=== PATIENT | male | born 1930 | race Caucasian/White ===

== ENCOUNTER 2017-06-29 09:40 | Inpatient (IN) | payer OTHER ==
[~2017-06-29] VITALS: Ht 167.6 cm; Wt 81.6 kg
--- NOTE | ~2017-06-29 | EKG ---
[place] [address] [facility] [place] [address] ELECTROCARDIOGRAM REPORT Name: TONYA DALY Room #: 421-P ADM IN M.R.#: [id number] Admission: 06/29/17 Attend Phys: Jose A Tracey Discharge: Date of : 30 Report #: [id number] THIS REPORT FOR: //name// [facility] ED Test Date: 2017-06-29 Test Time: 10:01:35 Pat Name: TOYNA DALY Department: Room: 421 Gender: M [employer]: GABRIELA : 1930 Requested By: Alphonse Cortés Order Number: [id number] MD: Mike Limon Measurements Intervals [place] Rate: 69 P: 32 ME: 190 QRS: -26 QRSD: 115 T: 6 QT: 416 QTc: 446 Interpretive Statements Sinus rhythm Nonspecific intraventricular conduction delay Borderline T abnormalities No previous ECG available for comparison Electronically Signed On 06-29-2017 16:00:30 SMOKE EATER by Mike Limon [email or web address] <ELECTRONICALLY SIGNED> By: Mike Limon MD, [facility] 06/29/17 1600 1001 1001 Mike Limon MD, FACC /EPI
--- NOTE | ~2017-06-29 | 2DMMODE ---
[facility] [employer] [place] [place] [address] 2 D/M-MODE ECHOCARDIOGRAM Name: TONYA DALY Conor Room #: 170-6 ADM IN ..#: [id number] Admission: 06/29/17 Attend Phys: Jose A Méndez Discharge: Date of : 30 Date of Service: 06/29/17 1353 Report #: [id number] THIS REPORT FOR: //name// APPROVED REPORT Study performed: 06/29/2017 12:35:33 EXAM: Comprehensive 2D, Doppler, and color-flow Echocardiogram Patient Location: ER Room #: 6 Status: routine BSA: 1.96 HR: 61 bpm BP: 149/66 mmHg Rhythm: NSR Indications Syncope. Hx: TIAs, ASD or PFO closure device. Echo Enhancing Agent Indication: Rule out Shunt Agent(s) / Amount(s) Used: Agitated Saline 6 cc 2D Dimensions RVDd: 37.85 mm LVEF(%): 48.01 (>50%) IVSd: 12.64 (7-11mm) LVOT Diam: 24.60 (18-24mm) LVDd: 60.90 mm PWd: 10.14 (7-11mm) Ascending Ao: 43.52 (22-36mm) LVDs: 45.90 (25-40mm) Aortic Root: 39.48 mm Will's LVEF: 48.01 % Volumes Left Atrial Volume (Systole) Single Plane 4CH: 94.32 mL Single Plane 2CH: 92.72 mL LA ESV Index: 51.00 mL/m2 Aortic Valve AoV Peak Darin.: 2.06 m/s AO Peak Gr.: 16.93 mmHg LVOT Max P.21 mmHg AO Mean Gr.: 9.51 mmHg AO V2 Mean: 1.47 m/s LVOT Max V: 0.90 m/s AO V2 VTI: 52.85 cm YANI Vmax: 2.07 cm2 AI Vmax: 3.98 m/s [facility] [employer] [place] [place] [address] 2 D/M-MODE ECHOCARDIOGRAM Name: MARYLUAZULTONYA Perdomo Room #: 170-6 [facility] IN .R.#: [id number] Admission: 06/29/17 Attend Phys: Jose A Méndez Discharge: Date of : 30 Date of Service: 06/29/17 1353 Report #: [id number] AI Morris: 1.90 m/s2 AI PHT: 607.89 ms Mitral Valve E/A Ratio: 0.8 MV Decel. Time: 291.02 ms MV E Max Darin.: 0.81 m/s MV A Darin.: 0.96 m/s MV PHT: 84.40 ms IVRT: 101.50 ms Pulmonary Valve PV Peak Darin.: 1.51 m/s PV Peak Gr.: 9.12 mmHg Pulmonary Vein P Vein S: 0.64 m/s P Vein A: 0.32 m/s P Vein D: 0.39 m/s P Vein A Dur.: 166.1 msec P Vein S/D Ratio: 1.64 Tricuspid Valve TR Peak Darin.: 3.21 m/s RAP Estimate: 5.00 mmHg TR Peak Gr.: 41.26 mmHg PA Pressure: 46.00 mmHg Left Ventricle Left ventricle is mildly dilated. There is normal LV segmental wall motion. Mild basal septal hypertrophy is present. Left ventricular systolic function is normal. LVEF is 50-55%. Mild diastolic dysfunction is present (impaired relaxation pattern). Right Ventricle The right ventricle is normal size. The right ventricular systolic function is normal. Atria Left atrium is severely dilated. No shunting noted with contrast bubble injection. The right atrium size is normal. Aortic Valve Aortic valve leaflets are mildly thickened. Mild aortic regurgitation. There is no aortic valvular stenosis. Mitral Valve Mitral valve leaflets are mildly thickened. Mild mitral annular calcification. Mild [place] [address] 2 D/M-MODE ECHOCARDIOGRAM Name: ADDYTONYA Perdomo Room #: 170-6 ADM IN M.R.#: [id number] Admission: 06/29/17 Attend Phys: Jose A Méndez Discharge: Date of : 30 Date of Service: 06/29/17 1353 Report #: [id number] Tricuspid Valve The tricuspid valve is normal in structure. Mild tricuspid regurgitation. Estimated PAP is 45-50mmHg. Pulmonic Valve The pulmonary valve is normal in structure. Mild pulmonic regurgitation. Great Vessels Aortic root is mildly dilated at 3.9cm. 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 Pericardium There is no pericardial effusion. <Conclusion> Left ventricular systolic function is normal. There is normal LV segmental wall motion. LVEF is 50-55%. Mild diastolic dysfunction Left atrium is severely dilated. ASD closure device suggested. No shunting noted with contrast bubble injection. Aortic valve leaflets are mildly thickened, no stenosis. Mild aortic regurgitation. Mitral valve leaflets are mildly thickened. Mild mitral annular calcification. Mild mitral regurgitation. Mild tricuspid regurgitation. Estimated pulmonary artery pressure of 45-50mmHg. 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 <ELECTRONICALLY SIGNED> By: Mike Limon MD, FACC 06/29/17 1353 1353 1353 Mike Limon MD, FACC /INF
--- NOTE | ~2017-06-29 | HC ---
[facility] [place] [address] CONSULTATION Name: ADDYTONYA Perdomo Room #: 421-P [facility] IN M.R.#: [id number] Admission: 06/29/17 Attend Phys: Jose A Tracey Discharge: Date of : 30 Report #: [id number] THIS REPORT FOR: //name// CC: Aba Tracey REASON FOR CONSULTATION: Chronic kidney disease. REASON FOR PRESENTATION: Dizziness. HISTORY OF PRESENT ILLNESS: This is an 86-year-old with past medical history of chronic kidney disease. He sees Dr. Bonilla in our clinic. He is known to have renal cell carcinoma status post right-sided nephrectomy. He is also known to have a left-sided renal mass. This was operated upon. It looks like that there was some sort of thermal treatment as he stated. He has been seeing Dr. Bonilla in my clinic and decision was made to continue with the medical treatment every 6-month visit with Dr. Bonilla. He presented yesterday reporting some dizziness and lightheadedness. No associated vomiting. He was admitted for further evaluation and management. CT scan of the brain revealed no abnormality. Carotid Doppler revealed no significant lesions. On presentation to the emergency room, he was found to have an elevated creatinine at 2.7. I am being consulted to manage his chronic kidney disease. Looking back at his most recent labs from Dr. Bonilla's clinic back in November 2016, his creatinine was 2.5. He has no active urinary symptoms in the form of frequency, urgency, or hesitancy. He is still feeling dizzy this morning. The dizziness symptoms started before his presentation, he felt somewhat wobbly and had some lightheadedness. He also had some neck pain. He is known to have some sort of spinal stenosis in his cervical vertebrae. He did have a history of TIA. Remotely, he had a history of patent foramen ovale that was closed surgically as he stated. This was done at the [facility]. PAST MEDICAL HISTORY: 1. Chronic kidney disease. 2. Renal cell carcinoma post right nephrectomy. 3. Left renal mass, status post thermal ablation. 4. Hypertension. 5. Patent foramen ovale surgery. 6. Knee surgery. 7. Hernial repair. 8. TIA. 9. Appendectomy. 10. Chronic kidney disease. 11. Asthma. 12. Sleep apnea, utilizing CPAP. SOCIAL HISTORY: No drug or alcohol abuse. He quit smoking a while ago. [facility] [address] [place] [address] CONSULTATION Name: TONYA DALY Room #: 421-P [facility] IN .R.#: [id number] Admission: 06/29/17 Attend Phys: Jose A Tracey Discharge: Date of : 30 Report #: [id number] MEDICATIONS: 1. Lasix. 2. Simvastatin. 3. Amlodipine. 4. Ferrous sulfate. 5. Aspirin. 6. Zocor. REVIEW OF SYSTEMS: GENERAL: No fever or chills. CARDIOVASCULAR: As per the history of present illness. PULMONARY: No cough or hemoptysis. GASTROINTESTINAL: No nausea or vomiting. GENITOURINARY: No frequency, no urgency. PHYSICAL EXAMINATION: GENERAL: He is alert and oriented. VITAL SIGNS: Temperature 35.7, blood pressure is marginally elevated at 161/77, pulse rate is 97. HEAD AND NECK: No jugular venous distention, no bruit, no thyromegaly. CHEST: Clear to auscultation bilaterally. CARDIOVASCULAR: Regular with no rub. ABDOMEN: Soft, nontender with no hepatosplenomegaly. LOWER EXTREMITIES: No edema with intact peripheral pulses. LABORATORY VALUES: Reviewed. BUN is 39, creatinine is back to its baseline 2.9. Hemoglobin is 10.6. ASSESSMENT, IMPRESSION, AND PLAN: 1. Near syncope. 2. Postural hypertension. 3. Chronic kidney disease. 4. Right renal cell carcinoma, status post nephrectomy. 5. Left renal cell mass, status post thermal ablation. 6. From the renal perspective, the patient seems to be back to his baseline. His creatinine as an outpatient was 2.5 as of November 2016 and he is down to 2.4. 7. Agree with gentle IV hydration for now. 8. Monitor blood pressure, I reintroduced carefully. 9. Workup for his symptoms is in progress. <ELECTRONICALLY SIGNED> By: Madonna Lane MD 07/01/[address] MD /nt
[~2017-06-29 09:40] MED LIST: ALLOPURINOL 10100 M3 PO; AMLODIPINE BESY10 MG PO; AMLODIPINE BESYL5 MG PO; ANUCORT-HC25 MG RECTAL; ASPIRIN325; ASPIRIN325 PO; AVELOX 400 MG400 MG PO; COZAAR PO; FISH OIL 1,2001 EAC3 PO; FUROSEMIDE 20 M20 MG GT; FUROSEMIDE 20 M20 MG PO; IRON325 PO; LOPRESSOR 50 MG50 M1 PO; NORVASC 5 MG TAB5 MG PO; OCUVITE PRESER1 EACH PO; PROTONIX40 M2 PO; SIMVASTATIN20 MG PO; SINGULAIR 10 MG10 MG PO; STOOL SOFTENER1 EAC2 PO; TOPROL XL50 MG PO; VENTOLIN HFA 1818 GM INH; ZOCOR 10 MG TAB10 MG PO; [UNRECOGNIZED DRUG - OTHER] PO; [UNRECOGNIZED DRUG - OTHER] RC
[2017-06-29 10:06] LABS: ABSOLUTE NEUTROPHILS 4.4 thou/uL (1.4-8.2); BASOPHILS 0.8 % (0.0-2.0); EOSINOPHILS 0.3 % (0.0-3.0); HEMATOCRIT 32.1 % (42.0-52.0); HEMOGLOBIN 10.6 gm/dL (14.0-18.0); LYMPHOCYTES 16.8 % (24.0-44.0); MCH 30.4 pg (26.0-34.0); MCHC 33.1 g/dL (28.0-37.0); MCV 91.8 fL (80.0-100.0); MONOCYTES 6.5 % (1.0-8.0); PLATELET COUNT 186 thou/uL (150-400); POLYS 75.6 % (36.0-66.0); RBC 3.49 mil/uL (4.50-6.00); WBC 5.8 thou/uL (4.0-11.0)
[2017-06-29 10:15] LABS: ANION GAP 7 mmol/L (7-16); BUN 41 mg/dL (7-18); CALCIUM 9.2 mg/dL (8.5-10.1); CHLORIDE 107 mmol/L (98-107); CO2 27 mmol/L (21-32); CREATININE 2.7 mg/dL (0.7-1.3); GLUCOSE 110 mg/dL (74-106); POTASSIUM 4.3 mmol/L (3.5-5.1); SODIUM 141 mmol/L (136-145)
[2017-06-29 10:24] LABS: ALBUMIN 3.6 g/dL (3.4-5.0); SGOT 14 U/L (15-37); SGPT 19 U/L (30-65); TOTAL BILIRUBIN 0.3 mg/dL (<0.1-1.0); TOTAL PROTEIN 6.7 g/dL (6.4-8.2); TROPONIN-I < 0.04 ng/mL (<0.06)
[2017-06-29 10:46] LABS: URINE BILIRUBIN NEGATIVE (Negative); URINE BLOOD NEGATIVE (Negative); URINE CLARITY CLEAR; URINE COLOR YELLOW; URINE GLUCOSE-RANDOM* NEGATIVE (Negative); URINE KETONES NEGATIVE (Negative); URINE LEUKOCYTES-REFLEX NEGATIVE (Negative); URINE NITRITE-REFLEX NEGATIVE (Negative); URINE PROTEIN (DIPSTICK) TRACE (Negative); URINE SPECIFIC GRAVITY <= 1.005 (1.005-1.035); URINE UROBILINOGEN 0.2 E.U./dl (0.2-1.0)
[2017-06-29 12:35] LABS: URINE POTASSIUM-RANDOM* 32.5 mmol/L
[2017-06-29 12:45] VITALS: BP 133/74
[2017-06-29 13:10] VITALS: BP 137/68
[2017-06-29] MEDS ORDERED: CELEXA20 MG PO (13:54)
[2017-06-29] MEDS ORDERED: COZAAR 50 MG TA50 M2 PO (13:55)
[2017-06-29 14:18] VITALS: BP 164/87
[2017-06-29 19:15] VITALS: BP 142/67
[2017-06-30 03:43] VITALS: BP 164/77
[2017-06-30 06:07] LABS: ALBUMIN 3.1 g/dL (3.4-5.0); CALCIUM 8.4 mg/dL (8.5-10.1); CREATININE 2.4 mg/dL (0.7-1.3); PHOSPHORUS 4.4 mg/dL (2.5-4.9); POTASSIUM 4.4 mmol/L (3.5-5.1)
[2017-06-30 07:55] VITALS: BP 161/72
[2017-06-30 15:25] VITALS: BP 141/68
[2017-06-30 19:06] VITALS: BP 138/67
[2017-07-01 03:12] VITALS: BP 161/67
[2017-07-01 05:23] LABS: CALCIUM 8.7 mg/dL (8.5-10.1); CREATININE 2.2 mg/dL (0.7-1.3); PHOSPHORUS 3.3 mg/dL (2.5-4.9); POTASSIUM 4.1 mmol/L (3.5-5.1)
[2017-07-01 07:35] VITALS: BP 164/65
[2017-07-01] MEDS ORDERED: LASIX 40 MG TAB40 M2 PO (09:58)
[2017-07-01 11:50] VITALS: BP 164/65
[2018-03-01] MEDS ORDERED: ASPIR 8181 MG PO (14:33)
[2018-03-01] MEDS ORDERED: NORVASC10 MG PO (14:33)
[2018-03-01] MEDS ORDERED: LASIX 20 MG TAB20 MG PO (14:37)
[2018-03-01] MEDS ORDERED: LOPRESSOR50 PO (14:41)
[2018-03-01] MEDS ORDERED: OCUVITE SOFTGE1 EAC1 PO (14:42)
[2018-03-01] MEDS ORDERED: LOSARTAN POTAS100 MG PO (15:13)
== END 2017-07-01 14:18 | disposition home or self-care (01) | DRG 682 ==
LOC: ER 09:40 → 4E 11:43 → EROBS 11:43 → 4E 13:50
PROVIDERS: Hospitalist; Physician Assistant
PROC: B24BZZ4 Ultrasonography of Heart with Aorta, Transesophageal (ICD-10-PCS; principal; 2017-06-29)
DX: N17.9 Acute kidney failure, unspecified (principal); E43 Unspecified severe protein-calorie malnutrition; N18.4 Chronic kidney disease, stage 4 (severe); I12.9 Hypertensive chronic kidney disease with stage 1 through stage 4 chronic kidney disease, or unspecified chronic kidney disease; E78.00 Pure hypercholesterolemia, unspecified; J45.909 Unspecified asthma, uncomplicated; I08.3 Combined rheumatic disorders of mitral, aortic and tricuspid valves; M54.2 Cervicalgia; Z85.528 Personal history of other malignant neoplasm of kidney; Z86.73 Personal history of transient ischemic attack (TIA), and cerebral infarction without residual deficits; Z87.891 Personal history of nicotine dependence; Z90.5 Acquired absence of kidney; Z90.49 Acquired absence of other specified parts of digestive tract; Z79.82 Long term (current) use of aspirin; Z79.899 Other long term (current) drug therapy
CPT/HCPCS: 10183

== ENCOUNTER → 2018-03-05 | Outpatient (CLI) | payer OTHER ==
[~2018-03-05] VITALS: Ht 170.2 cm; Wt 86.2 kg
[~2018-03-05] MED LIST changes: +ASPIR 8181 MG PO; +CELEXA20 MG PO; +COZAAR 50 MG TA50 M2 PO; +LASIX 20 MG TAB20 MG PO; +LASIX 40 MG TAB40 M2 PO; +LOPRESSOR50 PO; +LOSARTAN POTAS100 MG PO; +NORVASC10 MG PO; +OCUVITE SOFTGE1 EAC1 PO
--- NOTE | ~2018-03-05 | PATH ---
[facility] [place] [address] PATHOLOGY RPT PROCEDURE Name: TONYA MTZ Room #: REG [facility] MYeeR.#: [id number] Admission: 03/05/18 Date of : 30 Discharge: Report #: [id number] Path Case #: [id number] [facility] Accession Number: [id number] . 01 Material submitted: . PREMA R/O H PYLORI BIOPSY . 01 Clinical history: . Pre-OP DX: Cough, dysphagia Post-OP DX: Gastritis, dysphagia . 02 Diagnosis: Gastric biopsy: - Mild chronic reactive gastropathy. - The immunoperoxidase stain for Helicobacter pylori is negative. . (SHA:mml; 03/06/18) QL/03/06/2018 . 02 Electronically signed: . Kishor Peacock MD, Pathologist NPI- [id number] . 01 Gross description: . Received in formalin labeled "Tonya Mtz, gastritis, rule out H. pylori," are 5 segments of young soft tissue measuring 0.9 x 0.8 x 0.2 cm in aggregate dimensions and ranging from 0.3 to 0.5 cm in maximum dimension. The specimen is submitted entirely in cassette A1. (TSD; 03/05/2018) TOB/TOB . 02 Pathologist provided ICD-10: K31.9 . 02 CPT . 938728, S74261 Specimen Comment: A courtesy copy of this report has been sent to Specimen Comment: [phone], . Specimen Comment: Report sent to / DR JONES Specimen Comment: A duplicate report has been generated due to demographic updates. Performed at: [address] [id number] MD Bang Adkins MD Phone: [phone] Performed at: 02 [facility] [address] [place] [address] PATHOLOGY RPT PROCEDURE Name: TONYA MTZ [facility] [id number] Admission: 03/05/18 Date of : 30 Discharge: Report #: [id number] Path Case #: [id number] [address] [place] [id number] MD Karolina Martinez MD Phone: [phone]
--- NOTE | ~2018-03-05 | P ---
[facility] [place] [address] [place] [address] PROCEDURE REPORT Name: ADDYTONYA Conor Room #: REG [facility]#: [id number] Admission: 03/05/18 Attend Phys: Henry Meléndez MD Discharge: Date of : 30 Report #: [id number] THIS REPORT FOR: //name// CC: Aba Mejia DO Henry Meléndez BRIEF HISTORY: The patient is an 87-year-old male who recently has had complaints of cough and symptoms of dysphagia with sticking in his upper throat. PREOPERATIVE DIAGNOSIS: Dysphagia and cough. POSTOPERATIVE DIAGNOSES: 1. Moderate erosive antral gastritis. 2. Dysphagia. MEDICATIONS: Deep sedation with propofol per anesthesia. SPECIMEN: Biopsies of gastritis. ESTIMATED BLOOD LOSS: 3 mL. PROCEDURE: EGD with biopsy. FINDINGS: Prior to propofol sedation, procedure of upper endoscopy and dilation were discussed with the patient as well as potential risks and its complications. He indicates he understands and desires to proceed. With the patient in left lateral decubitus position, the Olympus video endoscope was inserted in the cervical esophagus under direct vision without difficulty. Examination of this organ through its entire length revealed normal esophageal mucosa down to the squamocolumnar junction. Squamocolumnar junction was inspected and noted to be unremarkable. No evidence of esophagitis, ulcers or erosions. A significant hiatus hernia was not seen. The scope was advanced into the stomach, was examined on end view as well as retroflexed views. There was a pattern of diffuse gastritis with scattered erosions. No ulcers were identified. The pylorus, duodenal bulb and postbulbar duodenal sweep were all inspected and noted to be unremarkable. At that point, the scope was slowly withdrawn and careful circumferential views were obtained. Biopsies obtained of the gastritis. The patient tolerated the procedure well. Following the procedure, he was dilated with passage of 52-British Quiles dilator. There was no resistance. CONDITION OF THE PATIENT UPON DISCHARGE: Following the procedure, he was drowsy, but arousable. He will be discharged home when fully ambulatory. [facility] [address] [place] [address] PROCEDURE REPORT Name: TONYA DALY Room #: REG [place] Issa#: [id number] Admission: 03/05/18 Attend Phys: Henry Meléndez MD Discharge: Date of : 30 Report #: [id number] INSTRUCTIONS TO THE PATIENT AND FAMILY AT THE TIME OF DISCHARGE: As far as his cough symptoms, I do not see endoscopic evidence of an erosive esophagitis. However, we will have him try omeprazole 20 mg daily for about 6 weeks. If needed, he could use twice daily as well. If the cough does not resolve over 6-8 weeks, he would not necessarily need to take a PPI on a long-term basis. However, if he does have benefit long-term administration may be helpful. He was dilated as noted above. He is to return for dilation on an as needed basis. He will follow up with Dr. Aba Mejia and return to see me as needed. If symptoms persist, he should return to our office for followup. <ELECTRONICALLY SIGNED> By: Henry Meléndez MD 03/06/18 0732 1148 0219 Henry Meléndez MD /nt
== END | disposition home or self-care (01) ==
LOC: EDSTATUS 09:06 → GI 09:06
DX: K31.9 Disease of stomach and duodenum, unspecified (principal); R13.19 Other dysphagia; I10 Essential (primary) hypertension; E78.5 Hyperlipidemia, unspecified; D64.9 Anemia, unspecified; J40 Bronchitis, not specified as acute or chronic; G47.33 Obstructive sleep apnea (adult) (pediatric); Z90.5 Acquired absence of kidney; Z85.528 Personal history of other malignant neoplasm of kidney; Z98.890 Other specified postprocedural states; Z98.41 Cataract extraction status, right eye; Z87.891 Personal history of nicotine dependence; Z98.42 Cataract extraction status, left eye; Z86.73 Personal history of transient ischemic attack (TIA), and cerebral infarction without residual deficits; Z79.899 Other long term (current) drug therapy; Z79.82 Long term (current) use of aspirin
CPT/HCPCS: 62110; 62900

== ENCOUNTER → 2020-03-05 | Outpatient (CLI) | payer OTHER | LOC: LAB 09:32 | PROVIDERS: ATTEND Family Medicine | DX: U07.1 COVID-19 (principal) ==